=== PATIENT | male | born 1945 | race Caucasian/White ===

== ENCOUNTER 2022-09-13 12:09 | Emergency (ER) | payer MEDICARE, MEDICAID ==
[~2022-09-13] VITALS: Ht 172.7 cm; Wt 72.7 kg
[2022-09-13] VITALS (10 sets, daily range): BP systolic 119–152; BP diastolic 64–84
[2022-09-13 13:46] LABS: HEMATOCRIT 37.2 % (39.0-50.0); HEMOGLOBIN 12.8 g/dl (14.0-18.0); IMMATURE GRANULOCYTES 0.3 % (0.0-5.0); MEAN CELL VOLUME 108.8 fL CALC (80.0-100.0); MEAN CORPUSCULAR HGB 37.4 pG CALC (26.0-32.0); MEAN CORPUSCULAR HGB CONC 34.4 g/dL CAL (32.0-36.0); NEUT# 3.36 thou/uL (1.82-7.42); RED BLOOD COUNT 3.42 mill/uL (4.70-6.10); RED CELL DISTRI WIDTH 14.9 % (11.5-15.5)
[2022-09-13 13:47] LABS: URINE BILIRUBIN - DIPSTICK MODERATE (NEGATIVE); URINE BLOOD DIPSTICK NEGATIVE (NEGATIVE); URINE COLOR DK. YELLOW; URINE GLUCOSE - DIPSTICK NEGATIVE (NEGATIVE); URINE KETONE TRACE mg/dL (NEGATIVE); URINE LEUK ESTERASE NEGATIVE (NEGATIVE); URINE NITRITE - DIPSTICK POSITIVE (Negative); URINE PH 5.5 (4.5-8.0); URINE PROTEIN - DIPSTICK TRACE mg/dL (NEG-TRACE); URINE SPECIFIC GRAVITY >=1.030
[2022-09-13 13:48] LABS: URINE MUCUS FEW hpf (NONE-FEW)
[2022-09-13 13:59] LABS: ALBUMIN 2.8 g/dL (3.2-5.0); ALKALINE PHOSPHATASE 134 u/l (38-126); ANION GAP 11 (6-22 (CALC)); BILIRUBIN, TOTAL 3.7 mg/dL (0.0-1.4); BUN 6 mg/dL (8-23); BUN/CREATININE RATIO 7 (12-20 (CALC)); CARBON DIOXIDE 26 mmol/l (22-30); CHLORIDE 104 mmol/l (95-108); CREATININE 0.8 mg/dL (0.7-1.3); GFR FOR AFR.AMER. > 60 ML/MIN (>=60 (CALC)); GFR OTHER RACES > 60 ML/MIN (>=60 (CALC)); LIPASE 126 u/l (23-300); POTASSIUM 3.8 mmol/l (3.5-5.1); SGOT/AST 88 u/l (19-48); SODIUM 138 mmol/l (137-146); TOTAL PROTEIN 6.6 g/dL (6.3-8.2)
[2022-09-13] MEDS ORDERED: LASIX 40 MG TAB40 MG PO ×3 (16:33→17:29)
== END 2022-09-13 16:52 | disposition home or self-care (01) ==
LOC: ED 12:09
PROVIDERS: Family Medicine
DX: K74.60 Unspecified cirrhosis of liver (principal); R18.8 Other ascites; F17.220 Nicotine dependence, chewing tobacco, uncomplicated
CPT/HCPCS: Q9967

== ENCOUNTER 2022-09-15 09:54 | Emergency (ER) | payer MEDICARE, MEDICAID ==
[~2022-09-15] VITALS: Ht 172.7 cm; Wt 72.7 kg
[~2022-09-15 09:54] MED LIST: LASIX 40 MG TAB40 MG PO
[2022-09-15 10:44] VITALS: BP 128/71
[2022-09-15 11:04] LABS: HEMATOCRIT 38.1 % (39.0-50.0); HEMOGLOBIN 12.7 g/dl (14.0-18.0); IMMATURE GRANULOCYTES 0.2 % (0.0-5.0); MEAN CELL VOLUME 113.1 fL CALC (80.0-100.0); MEAN CORPUSCULAR HGB 37.7 pG CALC (26.0-32.0); MEAN CORPUSCULAR HGB CONC 33.3 g/dL CAL (32.0-36.0); NEUT# 3.68 thou/uL (1.82-7.42); RED BLOOD COUNT 3.37 mill/uL (4.70-6.10); RED CELL DISTRI WIDTH 15.4 % (11.5-15.5)
[2022-09-15 11:20] LABS: ALBUMIN 2.9 g/dL (3.2-5.0); ALKALINE PHOSPHATASE 131 u/l (38-126); ANION GAP 12 (6-22 (CALC)); BILIRUBIN, TOTAL 4.9 mg/dL (0.0-1.4); BUN 10 mg/dL (8-23); BUN/CREATININE RATIO 13 (12-20 (CALC)); CARBON DIOXIDE 22 mmol/l (22-30); CHLORIDE 104 mmol/l (95-108); CREATININE 0.8 mg/dL (0.7-1.3); GFR FOR AFR.AMER. > 60 ML/MIN (>=60 (CALC)); GFR OTHER RACES > 60 ML/MIN (>=60 (CALC)); LIPASE 160 u/l (23-300); POTASSIUM 3.6 mmol/l (3.5-5.1); SGOT/AST 89 u/l (19-48); SODIUM 135 mmol/l (137-146); TOTAL PROTEIN 6.7 g/dL (6.3-8.2)
[2022-09-15 15:27] VITALS: BP 128/71
== END 2022-09-15 15:45 | disposition home or self-care (01) ==
LOC: ED 09:54
PROVIDERS: Family Medicine
PROC: 0W9G3ZZ Drainage of Peritoneal Cavity, Percutaneous Approach (ICD-10-PCS; principal; 2022-09-15)
DX: K74.60 Unspecified cirrhosis of liver (principal); R18.8 Other ascites; F10.10 Alcohol abuse, uncomplicated; F17.200 Nicotine dependence, unspecified, uncomplicated

== ENCOUNTER 2022-10-17 09:46 | Emergency (ER) | payer MEDICARE, OTHER ==
[2022-10-17] VITALS (9 sets, daily range): BP systolic 120–136; BP diastolic 67–81
[~2022-10-17] VITALS: Ht 172.7 cm; Wt 76.0 kg
[~2022-10-17 09:46] MED LIST changes: +FUROSEMIDE20 MG PO
[2022-10-17 11:08] LABS: EOS% 2.4 % (0-8); HEMATOCRIT 36.2 % (39.0-50.0); HEMOGLOBIN 12.5 g/dl (14.0-18.0); IMMATURE GRANULOCYTES 0.3 % (0.0-5.0); LYMPH% 35.2 % (15-41); MEAN CELL VOLUME 110.4 fL CALC (80.0-100.0); MEAN CORPUSCULAR HGB 38.1 pG CALC (26.0-32.0); MEAN CORPUSCULAR HGB CONC 34.5 g/dL CAL (32.0-36.0); MONO% 13.5 % (2-13); NEUT# 3.01 thou/uL (1.82-7.42); NEUT% 47.6 % (42-76); RED BLOOD COUNT 3.28 mill/uL (4.70-6.10); RED CELL DISTRI WIDTH 13.7 % (11.5-15.5)
[2022-10-17 11:28] LABS: ALBUMIN 2.6 g/dL (3.2-5.0); ALKALINE PHOSPHATASE 93 u/l (38-126); ANION GAP 8 (6-22 (CALC)); BILIRUBIN, TOTAL 3.7 mg/dL (0.0-1.4); BUN 14 mg/dL (8-23); BUN/CREATININE RATIO 16 (12-20 (CALC)); CARBON DIOXIDE 27 mmol/l (22-30); CHLORIDE 104 mmol/l (95-108); CREATININE 0.9 mg/dL (0.7-1.3); GFR FOR AFR.AMER. > 60 ML/MIN (>=60 (CALC)); GFR OTHER RACES > 60 ML/MIN (>=60 (CALC)); LIPASE 239 u/l (23-300); SGOT/AST 78 u/l (19-48); SODIUM 135 mmol/l (137-146); TOTAL PROTEIN 6.4 g/dL (6.3-8.2)
== END 2022-10-17 14:09 | disposition home or self-care (01) ==
LOC: ED 09:46
PROVIDERS: Emergency Medicine
PROC: 0W9G3ZZ Drainage of Peritoneal Cavity, Percutaneous Approach (ICD-10-PCS; principal; 2022-10-17)
DX: K70.31 Alcoholic cirrhosis of liver with ascites (principal); F10.10 Alcohol abuse, uncomplicated; F17.200 Nicotine dependence, unspecified, uncomplicated

== ENCOUNTER 2023-02-04 09:25 | Inpatient (IN) | payer MEDICARE, OTHER ==
[~2023-02-04] VITALS: Ht 172.7 cm; Wt 60.0 kg
[2023-02-04] VITALS (112 sets, daily range): BP systolic 74–128; BP diastolic 37–96
[2023-02-04 10:11] LABS: BASO% 0.5 % (0-3); HEMATOCRIT 34.4 % (39.0-50.0); HEMOGLOBIN 11.7 g/dl (14.0-18.0); IMMATURE GRANULOCYTES 1.6 % (0.0-5.0); LYMPH% 29.3 % (15-41); MEAN CELL VOLUME 101.5 fL CALC (80.0-100.0); MEAN CORPUSCULAR HGB 34.5 pG CALC (26.0-32.0); MONO% 11.1 % (2-13); NEUT# 4.36 thou/uL (1.82-7.42); NEUT% 56.5 % (42-76); RED BLOOD COUNT 3.39 mill/uL (4.70-6.10)
[2023-02-04] MEDS ORDERED: ALDACTONE25 MG PO (10:16)
[2023-02-04 10:20] LABS: ALBUMIN 2.5 g/dL (3.2-5.0); BILIRUBIN, TOTAL 2.3 mg/dL (0.2-1.3); CREATININE 3.3 mg/dL (0.7-1.3); TOTAL PROTEIN 6.2 g/dL (6.3-8.2)
[2023-02-04 10:21] LABS: POTASSIUM 5.4 mmol/l (3.5-5.1)
[2023-02-04] MEDS ORDERED: XIFAXAN200 MG PO (10:23)
[2023-02-04] MEDS ORDERED: GENERLAC10 GM/15 M (10:23)
[2023-02-04] MEDS ORDERED: ABILIFY10 MG PO (10:25)
[2023-02-04] MEDS ORDERED: TIZANIDINE HCL2 MG PO (10:27)
[2023-02-04 10:29] LABS: INTERNATIONAL NORMALIZED RATIO 1.3 RATIO (0.7-1.3)
[2023-02-04 11:10] LABS: URINE BLOOD DIPSTICK NEGATIVE (NEGATIVE); URINE COLOR YELLOW; URINE GLUCOSE - DIPSTICK NEGATIVE (NEGATIVE); URINE KETONE NEGATIVE (NEGATIVE); URINE LEUK ESTERASE NEGATIVE (NEGATIVE); URINE PH 5.5 (4.5-8.0); URINE PROTEIN - DIPSTICK NEGATIVE (NEG-TRACE); URINE SPECIFIC GRAVITY >=1.030; URINE UROBILINOGEN - DIPSTICK 0.2 E.U./dL (0.2)
[2023-02-04 11:14] LABS: URINE NITRITE - DIPSTICK NEGATIVE (Negative)
[2023-02-04 11:47] LABS: URINE BILIRUBIN - DIPSTICK NEGATIVE (NEGATIVE)
[2023-02-05] VITALS (119 sets, daily range): BP systolic 95–133; BP diastolic 45–81
[2023-02-05 05:35] LABS: INTERNATIONAL NORMALIZED RATIO 1.5 RATIO (0.7-1.3); PROTHROMBIN TIME 14.4 SECONDS (9.0-12.5)
[2023-02-05 05:48] LABS: ALBUMIN 2.5 g/dL (3.2-5.0); BILIRUBIN, TOTAL 2.1 mg/dL (0.2-1.3); MAGNESIUM 1.9 mg/dL (1.6-2.3); POTASSIUM 4.8 mmol/l (3.5-5.1); TOTAL PROTEIN 5.6 g/dL (6.3-8.2)
[2023-02-05 05:56] LABS: HEMATOCRIT 29.4 % (39.0-50.0); MEAN CELL VOLUME 100.7 fL CALC (80.0-100.0); MEAN CORPUSCULAR HGB 34.2 pG CALC (26.0-32.0); RED BLOOD COUNT 2.92 mill/uL (4.70-6.10); RED CELL DISTRI WIDTH 14.8 % (11.5-15.5)
[2023-02-05 05:57] LABS: CREATININE 2.1 mg/dL (0.7-1.3)
[2023-02-06] VITALS (23 sets, daily range): BP systolic 94–132; BP diastolic 56–80
[2023-02-06 05:16] LABS: HEMOGLOBIN 10.5 g/dl (14.0-18.0); MEAN CELL VOLUME 100.3 fL CALC (80.0-100.0); MEAN CORPUSCULAR HGB CONC 33.9 g/dL CAL (32.0-36.0); RED BLOOD COUNT 3.09 mill/uL (4.70-6.10); RED CELL DISTRI WIDTH 14.5 % (11.5-15.5)
[2023-02-06 05:26] LABS: ALBUMIN 2.3 g/dL (3.2-5.0); BILIRUBIN, TOTAL 1.9 mg/dL (0.2-1.3); CREATININE 1.5 mg/dL (0.7-1.3); INTERNATIONAL NORMALIZED RATIO 1.5 RATIO (0.7-1.3); MAGNESIUM 1.7 mg/dL (1.6-2.3); POTASSIUM 4.5 mmol/l (3.5-5.1); PROTHROMBIN TIME 14.7 SECONDS (9.0-12.5); TOTAL PROTEIN 5.3 g/dL (6.3-8.2)
[2023-02-07 02:56] VITALS: BP 130/81
[2023-02-07 04:00] VITALS: BP 130/81
[2023-02-07 05:33] LABS: HEMOGLOBIN 10.9 g/dl (14.0-18.0); MEAN CELL VOLUME 100.9 fL CALC (80.0-100.0); MEAN CORPUSCULAR HGB 34.4 pG CALC (26.0-32.0); MEAN CORPUSCULAR HGB CONC 34.1 g/dL CAL (32.0-36.0); RED BLOOD COUNT 3.17 mill/uL (4.70-6.10); RED CELL DISTRI WIDTH 14.8 % (11.5-15.5)
[2023-02-07 05:59] LABS: INTERNATIONAL NORMALIZED RATIO 1.6 RATIO (0.7-1.3); PROTHROMBIN TIME 15.5 SECONDS (9.0-12.5)
[2023-02-07 06:08] LABS: ALBUMIN 2.4 g/dL (3.2-5.0); BILIRUBIN, TOTAL 2.3 mg/dL (0.2-1.3); CREATININE 1.5 mg/dL (0.7-1.3); MAGNESIUM 1.7 mg/dL (1.6-2.3); POTASSIUM 4.5 mmol/l (3.5-5.1); TOTAL PROTEIN 5.5 g/dL (6.3-8.2)
[2023-02-07 07:42] VITALS: BP 98/58
[2023-02-07] MEDS ORDERED: MIDODRINE5 MG PO (10:05)
[2023-02-07 11:14] VITALS: BP 101/63
== END 2023-02-07 12:05 | DRG 433 ==
LOC: ED 09:25 → ED-I 11:50 → ED 13:32 → ICU 13:33 → MS2 13:33 → ED 13:33 → ICU 02-05 08:44 → MS2 02-06 10:45
PROVIDERS: Family Medicine; ADMIT Internal Medicine; ATTEND Internal Medicine
PROC: 0W9G3ZZ Drainage of Peritoneal Cavity, Percutaneous Approach (ICD-10-PCS; principal; 2023-02-04)
PROC: 05HM33Z Insertion of Infusion Device into Right Internal Jugular Vein, Percutaneous Approach (ICD-10-PCS; 2023-02-04)
PROC: 3E033XZ Introduction of Vasopressor into Peripheral Vein, Percutaneous Approach (ICD-10-PCS; 2023-02-04)
DX: K70.31 Alcoholic cirrhosis of liver with ascites (principal); E72.20 Disorder of urea cycle metabolism, unspecified; R62.7 Adult failure to thrive; I95.9 Hypotension, unspecified; E86.0 Dehydration; N18.9 Chronic kidney disease, unspecified; F10.90 Alcohol use, unspecified, uncomplicated; Z68.20 Body mass index [BMI] 20.0-20.9, adult; Z60.2 Problems related to living alone; Z20.822 Contact with and (suspected) exposure to COVID-19; K76.82 Hepatic encephalopathy; Z66 Do not resuscitate
CPT/HCPCS: P9047